=== PATIENT | female | born 1935 | race Caucasian/White ===

== ENCOUNTER 2017-10-11 19:10 | Inpatient (IN) | payer MEDICARE, OTHER ==
[2017-10-12] MEDS: morphine 2 MG INJ IV (00:04)
[2017-10-12] MEDS: ONDANSETRON 4 MG INJ IV (00:04)
[2017-10-12] MEDS: SOD CHLORIDE 0.9% 1,000 ML IV ×2 (00:04→11:31)
[2017-10-12 00:09] LABS: ADD MAN DIFF? NO
[2017-10-12 00:11] LABS: WHITE BLOOD COUNT 6.7 10^3/ul (4.8-10.8)
[2017-10-12 00:11] LABS: BASOPHILS % 0.4 % (0.0-2.0); EOSINOPHILS # 0.3 10^3/ul (0.0-0.5); EOSINOPHILS % 3.7 % (0.0-7.0); HEMATOCRIT 43.1 % (37.0-47.0); HEMOGLOBIN 14.4 g/dl (12.0-16.0); LYMPHOCYTES # 2.4 10^3/ul (0.8-2.9); LYMPHOCYTES % 36.1 % (15.0-51.0); MEAN CORPUSCULAR HGB CONC 33.4 g/dl (32.0-37.0); MEAN CORPUSCULAR VOLUME 92.7 fl (82.0-101.0); MONOCYTE # 0.7 10^3/ul (0.3-0.9); MONOCYTES % 10.7 % (0.0-11.0); NEUTROPHIL # 3.3 10^3/ul (1.6-7.5); PLATELET COUNT 221 10^3/UL (140-415); RED BLOOD COUNT 4.65 10^6/ul (4.20-5.40); RED CELL DISTRIBUTION WIDTH 13.8 % (11.5-14.5)
[2017-10-12 00:19] LABS: ADD UMIC YES; UR ASCORBIC ACID NEGATIVE (NEGATIVE); UR BILIRUBIN (Dip) NEGATIVE (NEGATIVE); UR BLOOD (Dip) NEGATIVE (NEGATIVE); UR CLARITY CLEAR (CLEAR); UR COLOR STRAW (YELLOW); UR GLUCOSE (Dip) NEGATIVE (NEGATIVE); UR KETONES (Dip) NEGATIVE (NEGATIVE); UR LEUKOCYTE ESTERASE (Dip) TRACE Leu/ul (NEGATIVE); UR NITRITE (Dip) NEGATIVE (NEGATIVE); UR RBC 0 /HPF (0-5); UR SPECIFIC GRAVITY (Dip) 1.008 (1.003-1.030); UR TOTAL PROTEIN (Dip) NEGATIVE (NEGATIVE); UR UROBILINOGEN (Dip) NEGATIVE (NEGATIVE); UR WBC 3 /HPF (0-5)
[2017-10-12 00:30] LABS: PROTIME 12.2 Sec (11.9-14.9)
[2017-10-12 00:31] LABS: PARTIAL THROMBOPLASTIN TIME 26.9 Sec (25.0-35.0)
[2017-10-12 00:40] LABS: LACTIC ACID 1.3 mmol/L (0.5-2.0)
[2017-10-12 00:41] LABS: ALANINE AMINOTRANSFERASE 98 IU/L (13-69); ALBUMIN 4.3 g/dl (3.3-4.9); ALBUMIN/GLOBULIN RATIO 1.13; ALKALINE PHOSPHATASE 99 IU/L (42-121); ANION GAP 13 (8-16); ASPARTATE AMINO TRANSFERASE 106 IU/L (15-46); BILIRUBIN,INDIRECT 0.5 mg/dl (0-1.1); BILIRUBIN,TOTAL 0.5 mg/dl (0.2-1.3); BLOOD UREA NITROGEN 21 mg/dl (7-20); CALCIUM 10.1 mg/dl (8.4-10.2); CARBON DIOXIDE 26 mmol/L (21-31); CHLORIDE 105 mmol/L (97-110); CREATININE 0.83 mg/dl (0.44-1.00); GLUCOSE 107 mg/dl (70-220); LIPASE 137 U/L (23-300); POTASSIUM 3.7 mmol/L (3.5-5.1); SODIUM 140 mmol/L (135-144); TOTAL PROTEIN 8.1 g/dl (6.1-8.1)
[2017-10-12 01:17] LABS: TROPONIN-I < 0.012 ng/ml (0.000-0.120)
[2017-10-12] MEDS: hydrALAzine 20 MG INJ IV (06:38)
[2017-10-12] MEDS ORDERED: NACL 0.9% 3 ML SYG IV (09:30)
[2017-10-12] MEDS ORDERED: NITROGLYCERIN (SL) 0.4 MG TAB SL (09:30)
[2017-10-12] MEDS ORDERED: morphine 2 MG INJ IV (09:30)
[2017-10-12] MEDS: SOD CHLORIDE 0.9% 500 ML IV (09:42)
[2017-10-12] MEDS: HEPARIN 5,000 UNIT/0.5 ML VIAL SC ×2 (09:50→20:51)
[2017-10-12 10:20] LABS: CREATINE KINASE 73 IU/L (23-200)
[2017-10-12 10:32] LABS: CK INDEX 2.7; CK-MB 1.99 ng/ml (0.0-2.4)
[2017-10-12 10:34] LABS: TROPONIN-I < 0.012 ng/ml (0.000-0.120)
[2017-10-12] MEDS ORDERED: MECLIZINE 12.5 MG TAB PO (11:30)
[2017-10-12] MEDS: LISINOPRIL 10 MG TAB PO (12:39)
[2017-10-12] MEDS: LEVOTHYROXINE 25 MCG TAB PO (12:39)
[2017-10-12 16:13] LABS: CREATINE KINASE 65 IU/L (23-200)
[2017-10-12 16:27] LABS: CK INDEX 2.4; CK-MB 1.53 ng/ml (0.0-2.4); TROPONIN-I 0.042 ng/ml (0.000-0.120)
[2017-10-13] MEDS: LEVOTHYROXINE 25 MCG TAB PO (05:42)
[2017-10-13 07:13] LABS: ADD MAN DIFF? NO
[2017-10-13 07:16] LABS: BASOPHILS % 0.7 % (0.0-2.0); EOSINOPHILS # 0.2 10^3/ul (0.0-0.5); EOSINOPHILS % 3.4 % (0.0-7.0); HEMATOCRIT 36.4 % (37.0-47.0); HEMOGLOBIN 12.1 g/dl (12.0-16.0); LYMPHOCYTES % 33.4 % (15.0-51.0); MEAN CORPUSCULAR HEMOGLOBIN 31.3 pg (29.0-33.0); MEAN CORPUSCULAR HGB CONC 33.2 g/dl (32.0-37.0); MEAN CORPUSCULAR VOLUME 94.3 fl (82.0-101.0); MEAN PLATELET VOLUME 9.9 fl (7.4-10.4); MONOCYTE # 0.7 10^3/ul (0.3-0.9); MONOCYTES % 11.2 % (0.0-11.0); NEUTROPHILS % 51.1 % (39.0-77.0); PLATELET COUNT 185 10^3/UL (140-415); RED BLOOD COUNT 3.86 10^6/ul (4.20-5.40); RED CELL DISTRIBUTION WIDTH 14.5 % (11.5-14.5)
[2017-10-13 07:16] LABS: WHITE BLOOD COUNT 5.9 10^3/ul (4.8-10.8)
[2017-10-13] MEDS: SOD CHLORIDE 0.9% 1,000 ML IV (07:30)
[2017-10-13 07:43] LABS: ALANINE AMINOTRANSFERASE 70 IU/L (13-69); ALBUMIN 3.1 g/dl (3.3-4.9); ALBUMIN/GLOBULIN RATIO 1.24; ALKALINE PHOSPHATASE 45 IU/L (42-121); ANION GAP 11 (8-16); ASPARTATE AMINO TRANSFERASE 51 IU/L (15-46); BILIRUBIN,INDIRECT 0.5 mg/dl (0-1.1); BILIRUBIN,TOTAL 0.5 mg/dl (0.2-1.3); BLOOD UREA NITROGEN 18 mg/dl (7-20); CALCIUM 8.6 mg/dl (8.4-10.2); CARBON DIOXIDE 27 mmol/L (21-31); CHLORIDE 106 mmol/L (97-110); CHOL/HDL RATIO 2.5 RATIO; CHOLESTEROL 126 mg/dl (100-200); CREATININE 0.92 mg/dl (0.44-1.00); GLUCOSE 94 mg/dl (70-220); HDL CHOLESTEROL 50 mg/dl (33-92); LDL CHOLESTEROL,CALCULATED 53 mg/dl; MAGNESIUM 1.9 mg/dl (1.7-2.5); POTASSIUM 4.7 mmol/L (3.5-5.1); SODIUM 139 mmol/L (135-144); TOTAL PROTEIN 5.6 g/dl (6.1-8.1); TRIGLYCERIDES 116 mg/dl (0-149)
[2017-10-13 07:49] LABS: HEMOGLOBIN A1C 5.9 % (0-5.9)
[2017-10-13] MEDS: HEPARIN 5,000 UNIT/0.5 ML VIAL SC ×2 (09:34→21:50)
[2017-10-13] MEDS: LISINOPRIL 10 MG TAB PO (09:34)
[2017-10-13] MEDS: ASPIRIN 81 MG TAB PO (09:34)
[2017-10-13] MEDS: LEVOTHYROXINE 50 MCG TAB PO (14:24)
[2017-10-13] MEDS: ATORVASTATIN 20 MG TAB PO (21:48)
[2017-10-14] MEDS: SOD CHLORIDE 0.9% 1,000 ML IV ×2 (03:30→09:33)
[2017-10-14] MEDS: LEVOTHYROXINE 75 MCG TAB PO (05:58)
[2017-10-14 07:20] LABS: ADD MAN DIFF? NO
[2017-10-14 07:29] LABS: WHITE BLOOD COUNT 5.1 10^3/ul (4.8-10.8)
[2017-10-14 07:29] LABS: BASOPHILS % 0.6 % (0.0-2.0); EOSINOPHILS # 0.3 10^3/ul (0.0-0.5); EOSINOPHILS % 6.3 % (0.0-7.0); HEMATOCRIT 36.9 % (37.0-47.0); HEMOGLOBIN 12.3 g/dl (12.0-16.0); LYMPHOCYTES # 1.7 10^3/ul (0.8-2.9); LYMPHOCYTES % 32.7 % (15.0-51.0); MEAN CORPUSCULAR HEMOGLOBIN 31.3 pg (29.0-33.0); MEAN CORPUSCULAR HGB CONC 33.3 g/dl (32.0-37.0); MEAN CORPUSCULAR VOLUME 93.9 fl (82.0-101.0); MEAN PLATELET VOLUME 10.5 fl (7.4-10.4); MONOCYTE # 0.6 10^3/ul (0.3-0.9); MONOCYTES % 12.5 % (0.0-11.0); NEUTROPHIL # 2.5 10^3/ul (1.6-7.5); NEUTROPHILS % 47.9 % (39.0-77.0); PLATELET COUNT 178 10^3/UL (140-415); RED BLOOD COUNT 3.93 10^6/ul (4.20-5.40); RED CELL DISTRIBUTION WIDTH 14.4 % (11.5-14.5)
[2017-10-14 08:05] LABS: ANION GAP 15 (8-16); BLOOD UREA NITROGEN 22 mg/dl (7-20); CALCIUM 8.9 mg/dl (8.4-10.2); CARBON DIOXIDE 25 mmol/L (21-31); CHLORIDE 107 mmol/L (97-110); CREATININE 0.86 mg/dl (0.44-1.00); GLUCOSE 91 mg/dl (70-220); PHOSPHORUS 3.9 mg/dl (2.5-4.9); POTASSIUM 4.6 mmol/L (3.5-5.1); SODIUM 142 mmol/L (135-144)
[2017-10-14] MEDS ORDERED: LOSARTAN 50 MG TAB PO (09:00)
[2017-10-14] MEDS: ASPIRIN 81 MG TAB PO (09:31)
[2017-10-14] MEDS: HEPARIN 5,000 UNIT/0.5 ML VIAL SC ×2 (09:32→20:23)
[2017-10-14] MEDS: ATORVASTATIN 20 MG TAB PO (20:22)
[2017-10-14] MEDS: ACETAMINOPHEN 325 MG TAB PO (23:10)
[2017-10-15] MEDS: LEVOTHYROXINE 75 MCG TAB PO (05:10)
[2017-10-15 06:50] LABS: ADD MAN DIFF? NO
[2017-10-15 06:54] LABS: WHITE BLOOD COUNT 5.2 10^3/ul (4.8-10.8)
[2017-10-15 06:54] LABS: BASOPHILS % 0.4 % (0.0-2.0); EOSINOPHILS # 0.4 10^3/ul (0.0-0.5); EOSINOPHILS % 7.3 % (0.0-7.0); HEMATOCRIT 36.8 % (37.0-47.0); HEMOGLOBIN 12.3 g/dl (12.0-16.0); LYMPHOCYTES # 1.8 10^3/ul (0.8-2.9); LYMPHOCYTES % 34.8 % (15.0-51.0); MEAN CORPUSCULAR HEMOGLOBIN 31.5 pg (29.0-33.0); MEAN CORPUSCULAR HGB CONC 33.4 g/dl (32.0-37.0); MEAN CORPUSCULAR VOLUME 94.1 fl (82.0-101.0); MEAN PLATELET VOLUME 10.3 fl (7.4-10.4); MONOCYTE # 0.7 10^3/ul (0.3-0.9); MONOCYTES % 13.3 % (0.0-11.0); NEUTROPHIL # 2.3 10^3/ul (1.6-7.5); PLATELET COUNT 169 10^3/UL (140-415); RED BLOOD COUNT 3.91 10^6/ul (4.20-5.40); RED CELL DISTRIBUTION WIDTH 14.1 % (11.5-14.5)
[2017-10-15 07:25] LABS: ANION GAP 11 (8-16); BLOOD UREA NITROGEN 18 mg/dl (7-20); CALCIUM 8.7 mg/dl (8.4-10.2); CARBON DIOXIDE 25 mmol/L (21-31); CHLORIDE 110 mmol/L (97-110); CREATININE 0.86 mg/dl (0.44-1.00); GLUCOSE 94 mg/dl (70-220); POTASSIUM 5.1 mmol/L (3.5-5.1); SODIUM 141 mmol/L (135-144)
[2017-10-15] MEDS: ASPIRIN 81 MG TAB PO (09:01)
[2017-10-15] MEDS: LOSARTAN 25 MG TAB PO (09:01)
[2017-10-15] MEDS: HEPARIN 5,000 UNIT/0.5 ML VIAL SC ×2 (09:03→22:16)
[2017-10-15] MEDS: ALENDRONATE 70 MG TAB PO (11:00)
[2017-10-15] MEDS: hydrALAzine 20 MG INJ IV (11:56)
[2017-10-15] MEDS ORDERED: morphine LIQ (10 MG/5 ML) CUP PO (15:30)
[2017-10-15] MEDS: SOD CHLORIDE 0.9% 500 ML IV (17:06)
[2017-10-15] MEDS: ATORVASTATIN 20 MG TAB PO (22:13)
[2017-10-16] MEDS: LEVOTHYROXINE 75 MCG TAB PO (05:58)
[2017-10-16 07:04] LABS: ADD MAN DIFF? NO
[2017-10-16 07:10] LABS: WHITE BLOOD COUNT 6.8 10^3/ul (4.8-10.8)
[2017-10-16 07:10] LABS: BASOPHILS % 0.6 % (0.0-2.0); EOSINOPHILS # 0.3 10^3/ul (0.0-0.5); HEMATOCRIT 42.6 % (37.0-47.0); HEMOGLOBIN 14.4 g/dl (12.0-16.0); LYMPHOCYTES # 2.3 10^3/ul (0.8-2.9); LYMPHOCYTES % 34.2 % (15.0-51.0); MEAN CORPUSCULAR HEMOGLOBIN 31.4 pg (29.0-33.0); MEAN CORPUSCULAR HGB CONC 33.8 g/dl (32.0-37.0); MEAN CORPUSCULAR VOLUME 92.8 fl (82.0-101.0); MEAN PLATELET VOLUME 10.5 fl (7.4-10.4); MONOCYTE # 0.7 10^3/ul (0.3-0.9); MONOCYTES % 10.2 % (0.0-11.0); NEUTROPHIL # 3.5 10^3/ul (1.6-7.5); PLATELET COUNT 227 10^3/UL (140-415); RED BLOOD COUNT 4.59 10^6/ul (4.20-5.40); RED CELL DISTRIBUTION WIDTH 14.1 % (11.5-14.5)
[2017-10-16 07:40] LABS: ANION GAP 14 (8-16); BLOOD UREA NITROGEN 17 mg/dl (7-20); CALCIUM 9.2 mg/dl (8.4-10.2); CARBON DIOXIDE 25 mmol/L (21-31); CHLORIDE 107 mmol/L (97-110); CREATININE 0.81 mg/dl (0.44-1.00); GLUCOSE 94 mg/dl (70-220); PHOSPHORUS 3.7 mg/dl (2.5-4.9); SODIUM 142 mmol/L (135-144)
[2017-10-16] MEDS: ASPIRIN 81 MG TAB PO (09:00)
[2017-10-16] MEDS: LOSARTAN 25 MG TAB PO (09:00)
[2017-10-16] MEDS: HEPARIN 5,000 UNIT/0.5 ML VIAL SC ×2 (09:13→20:48)
[2017-10-16 11:14] LABS: FREE T4 (FREE THYROXINE) 1.25 ng/dl (0.85-1.93)
[2017-10-16 11:15] LABS: T4 (THYROXINE) 11.8 ug/dl (5.5-11.0)
[2017-10-16 11:15] LABS: FREE T3 3.38 pg/ml (2.77-5.27)
[2017-10-16] MEDS: ATORVASTATIN 20 MG TAB PO (20:47)
[2017-10-17] MEDS: LEVOTHYROXINE 50 MCG TAB PO (05:21)
[2017-10-17] MEDS ORDERED: LEVOTHYROXINE 75 MCG TAB PO (06:00)
[2017-10-17] MEDS: LOSARTAN 25 MG TAB PO (09:00)
[2017-10-17] MEDS: ASPIRIN 81 MG TAB PO (09:12)
[2017-10-17] MEDS: HEPARIN 5,000 UNIT/0.5 ML VIAL SC (09:15)
[2017-10-17] MEDS: ONDANSETRON 4 MG INJ IV (11:18)
[2017-10-17] MEDS: ATORVASTATIN 20 MG TAB PO (20:09)
[2017-10-18] MEDS: LEVOTHYROXINE 50 MCG TAB PO (05:50)
[2017-10-18 08:16] LABS: ADD MAN DIFF? NO
[2017-10-18 08:17] LABS: WHITE BLOOD COUNT 6.7 10^3/ul (4.8-10.8)
[2017-10-18 08:17] LABS: BASOPHILS % 0.5 % (0.0-2.0); EOSINOPHILS # 0.3 10^3/ul (0.0-0.5); HEMATOCRIT 37.7 % (37.0-47.0); HEMOGLOBIN 12.6 g/dl (12.0-16.0); LYMPHOCYTES # 1.7 10^3/ul (0.8-2.9); LYMPHOCYTES % 26.2 % (15.0-51.0); MEAN CORPUSCULAR HEMOGLOBIN 31.2 pg (29.0-33.0); MEAN CORPUSCULAR HGB CONC 33.4 g/dl (32.0-37.0); MEAN CORPUSCULAR VOLUME 93.3 fl (82.0-101.0); MEAN PLATELET VOLUME 10.2 fl (7.4-10.4); MONOCYTE # 0.8 10^3/ul (0.3-0.9); MONOCYTES % 11.3 % (0.0-11.0); NEUTROPHIL # 3.8 10^3/ul (1.6-7.5); NEUTROPHILS % 56.8 % (39.0-77.0); PLATELET COUNT 180 10^3/UL (140-415); RED BLOOD COUNT 4.04 10^6/ul (4.20-5.40); RED CELL DISTRIBUTION WIDTH 14.1 % (11.5-14.5)
[2017-10-18] MEDS: LOSARTAN 25 MG TAB PO (09:00)
[2017-10-18 09:01] LABS: ALBUMIN 3.9 g/dl (3.3-4.9); ANION GAP 14 (8-16); BLOOD UREA NITROGEN 20 mg/dl (7-20); CALCIUM 8.8 mg/dl (8.4-10.2); CARBON DIOXIDE 26 mmol/L (21-31); CHLORIDE 104 mmol/L (97-110); CREATININE 0.91 mg/dl (0.44-1.00); GLUCOSE 94 mg/dl (70-220); MAGNESIUM 2.1 mg/dl (1.7-2.5); PHOSPHORUS 4.3 mg/dl (2.5-4.9); POTASSIUM 4.5 mmol/L (3.5-5.1); SODIUM 139 mmol/L (135-144)
[2017-10-18] MEDS: ASPIRIN 81 MG TAB PO (09:12)
== END 2017-10-18 12:30 | disposition home or self-care (01) | DRG 312 ==
LOC: E/R 19:10 → MS4 10-15 09:51
DX: I95.1 Orthostatic hypotension (principal); I16.1 Hypertensive emergency; I35.0 Nonrheumatic aortic (valve) stenosis; R10.9 Unspecified abdominal pain; R19.7 Diarrhea, unspecified; I10 Essential (primary) hypertension; E78.5 Hyperlipidemia, unspecified; E03.9 Hypothyroidism, unspecified; M81.0 Age-related osteoporosis without current pathological fracture; R00.1 Bradycardia, unspecified; R42 Dizziness and giddiness; Z87.891 Personal history of nicotine dependence; Z79.02 Long term (current) use of antithrombotics/antiplatelets; Z79.82 Long term (current) use of aspirin
CPT/HCPCS: 70450; 71045; 74176; 76705; 80048; 80053; 80061; 80069; 81001; 82550; 82553; 83036; 83605; 83690; 83735; 84100; 84436; 84439; 84443; 84481; 84484; 85025; 85610; 85730; 87045; 87075; 87205; 93005; 93306; 93880; 97116; 97161; 97167; 97530; 97535; 99217